=== PATIENT | male | born 1935 | race Native Hawaiian/Other Pacific Islander ===

== ENCOUNTER 2018-03-10 23:58 | Inpatient (IN) | payer OTHER, BC ==
[~2018-03-10] VITALS: Ht 172.7 cm; Wt 85.9 kg
[2018-03-11] VITALS (7 sets, daily range): BP systolic 147–164; BP diastolic 65–79; TEMP 98.1–100; Ht 172.7 cm; Wt 85.9 kg
[2018-03-11 00:50] LABS: PLATELET COUNT 206 K/uL (142-355)
[2018-03-11 00:57] LABS: POTASSIUM 4.4 mmol/L (3.6-5.2)
[2018-03-11 06:10] LABS: PLATELET COUNT 189 K/uL (142-355)
[2018-03-11] MEDS ORDERED: ALLO300T23 PO (11:34)
[2018-03-11] MEDS ORDERED: AMLODIPINE BESYLATE PO (11:35)
[2018-03-12] VITALS: BP 105/84; TEMP 98.5
[2018-03-12 04:13] VITALS: BP 172/92; TEMP 98.5
[2018-03-12 05:50] LABS: PLATELET COUNT 175 K/uL (142-355)
[2018-03-12 06:16] LABS: POTASSIUM 3.7 mmol/L (3.6-5.2)
[2018-03-12 08:03] VITALS: BP 157/94; TEMP 98.9
[2018-03-12 12:03] VITALS: BP 149/74; TEMP 98.2
[2018-03-12 16:30] VITALS: BP 169/88; TEMP 98.6
[2018-03-12 20:09] VITALS: BP 151/58; TEMP 98.5
[2018-03-13] VITALS: BP 136/58; TEMP 98.8
[2018-03-13 04:17] VITALS: BP 170/90; TEMP 98.5
[2018-03-13 05:41] LABS: PLATELET COUNT 164 K/uL (142-355)
[2018-03-13 05:56] LABS: POTASSIUM 3.7 mmol/L (3.6-5.2)
[2018-03-13 08:01] VITALS: BP 144/95; TEMP 98.3
[2018-03-13 12:30] VITALS: BP 159/83; TEMP 98.4
[2018-03-13 16:09] VITALS: BP 160/93; TEMP 98.6
[2018-03-13 20:12] VITALS: BP 167/80; TEMP 98.8
[2018-03-14] VITALS (7 sets, daily range): BP systolic 150–183; BP diastolic 63–91; TEMP 97.6–98.8
[2018-03-14 06:24] LABS: POTASSIUM 3.6 mmol/L (3.6-5.2)
[2018-03-14 06:29] LABS: PLATELET COUNT 184 K/uL (142-355)
[2018-03-15 04:00] VITALS: BP 158/87; TEMP 98.6
[2018-03-15 06:01] LABS: PLATELET COUNT 195 K/uL (142-355)
[2018-03-15 06:13] LABS: POTASSIUM 3.6 mmol/L (3.6-5.2)
[2018-03-15 08:05] VITALS: BP 170/90; TEMP 97.6
[2018-03-15 12:00] VITALS: BP 171/88; TEMP 97.8
[2018-03-15 16:00] VITALS: BP 167/87; TEMP 98
[2018-03-15 20:00] VITALS: BP 147/67; TEMP 98.6
[2018-03-16] VITALS: BP 154/87; TEMP 98.8
[2018-03-16 04:00] VITALS: BP 133/61; TEMP 98.6
[2018-03-16 05:31] LABS: PLATELET COUNT 199 K/uL (142-355)
[2018-03-16 05:49] LABS: POTASSIUM 3.7 mmol/L (3.6-5.2)
[2018-03-16 08:00] VITALS: BP 142/66; TEMP 97.6
[2018-03-16 12:00] VITALS: BP 152/76; TEMP 97.9
[2018-03-16 16:00] VITALS: BP 142/82; TEMP 97.7
== END 2018-03-16 18:39 | DRG 683 ==
LOC: ED 23:58 → MED/SURG 03-11 01:14 → ED 03-11 01:14 → MED/SURG 03-11 01:14
PROVIDERS: Emergency Medicine; ADMIT Internal Medicine
DX: N17.8 Other acute kidney failure (principal); E87.2 Acidosis; E86.0 Dehydration; R53.1 Weakness; H54.3 Unqualified visual loss, both eyes; H91.90 Unspecified hearing loss, unspecified ear; D72.828 Other elevated white blood cell count; R41.82 Altered mental status, unspecified; I10 Essential (primary) hypertension; M10.9 Gout, unspecified; M25.471 Effusion, right ankle; N40.0 Benign prostatic hyperplasia without lower urinary tract symptoms
CPT/HCPCS: 36415; 36600; 80053; 81000; 82550; 82553; 82805; 83605; 83615; 84484; 84550; 85027; 85610; 87040; 96360; 96361; 96375; 99283; J2060; J2543

== ENCOUNTER 2019-04-25 18:15 | Outpatient (CLI) | payer OTHER, BC ==
[~2019-04-25 18:15] MED LIST: ALLO300T23 PO; AMLODIPINE BESYLATE PO
[2019-04-26] MEDS ORDERED: HALO2CON2 PO (09:46)
[2019-04-26] MEDS ORDERED: VALSARTAN40 MG PO (09:47)
[2019-04-26] MEDS ORDERED: MORP20SO3 SL (09:47)
[2019-04-26] MEDS ORDERED: QUET50TA16 PO (09:48)
[2019-04-26] MEDS ORDERED: LORA1TAB17 PO (09:49)
[2019-04-26] MEDS ORDERED: FURO40TA93 PO (09:49)
[2019-04-26] MEDS ORDERED: METO25TA2 PO (09:50)
== END 2019-04-25 18:37 | disposition short-term general hospital (02) ==
LOC: AMB 18:15
DX: S00.81XA Abrasion of other part of head, initial encounter (principal); S60.511A Abrasion of right hand, initial encounter; G30.8 Other Alzheimer's disease; F02.81 Dementia in other diseases classified elsewhere, unspecified severity, with behavioral disturbance; W05.0XXA Fall from non-moving wheelchair, initial encounter; Y92.89 Other specified places as the place of occurrence of the external cause
CPT/HCPCS: A0425; A0429

== ENCOUNTER 2019-04-25 18:39 | Observation (INO) | payer OTHER, BC ==
[~2019-04-25] VITALS: Ht 172.7 cm; Wt 81.4 kg
[2019-04-25 18:39] VITALS: BP 158/70; TEMP 97.5
[2019-04-25 20:59] LABS: PLATELET COUNT 184 K/uL (142-355)
[2019-04-25 21:16] LABS: POTASSIUM 3.9 mmol/L (3.6-5.2); SODIUM 142 mmol/L (136-145)
[2019-04-25 21:23] LABS: PARTIAL THROMBOPLASTIN TIME 25.6 SECONDS (24.5-33.6)
[2019-04-25 22:45] VITALS: BP 158/70; TEMP 98.7; Ht 172.7 cm; Wt 81.4 kg
[2019-04-26] VITALS: BP 158/70; TEMP 98.6
[2019-04-26 04:00] VITALS: BP 145/68; TEMP 98.8
--- NOTE | 2019-04-26 06:42 | NUR ---
ABRASION TO PTS RIGHT HAND COVERED WITH NON STICK TELFA, SECURED WITH CLING.
[2019-04-26 08:00] VITALS: BP 136/75; TEMP 98.7
[2019-04-26] MEDS ORDERED: HALO2CON2 PO (09:46)
[2019-04-26] MEDS ORDERED: MORP20SO3 SL (09:47)
[2019-04-26] MEDS ORDERED: VALSARTAN40 MG PO (09:47)
[2019-04-26] MEDS ORDERED: QUET50TA16 PO (09:48)
[2019-04-26] MEDS ORDERED: LORA1TAB17 PO (09:49)
[2019-04-26] MEDS ORDERED: FURO40TA93 PO (09:49)
[2019-04-26] MEDS ORDERED: METO25TA2 PO (09:50)
[2019-04-26 12:00] VITALS: BP 199/74; TEMP 98.6
--- NOTE | 2019-04-26 14:02 | NUR ---
PT LEFT VIA EMS NEY PRASAD @ 12:45
== END 2019-04-26 12:45 | disposition home health service (06) ==
LOC: ED 18:48 → MED/SURG 21:30
PROVIDERS: Student in an Organized Health Care Education/Training Program; ADMIT Family Medicine
DX: S00.83XA Contusion of other part of head, initial encounter (principal); G30.8 Other Alzheimer's disease; F02.81 Dementia in other diseases classified elsewhere, unspecified severity, with behavioral disturbance; M10.9 Gout, unspecified; S60.221A Contusion of right hand, initial encounter; W18.39XA Other fall on same level, initial encounter; Y92.098 Other place in other non-institutional residence as the place of occurrence of the external cause; S60.511A Abrasion of right hand, initial encounter; E86.0 Dehydration; D72.828 Other elevated white blood cell count; D63.8 Anemia in other chronic diseases classified elsewhere; H54.3 Unqualified visual loss, both eyes; I12.9 Hypertensive chronic kidney disease with stage 1 through stage 4 chronic kidney disease, or unspecified chronic kidney disease; N18.4 Chronic kidney disease, stage 4 (severe); N17.8 Other acute kidney failure
CPT/HCPCS: 80053; 83735; 84443; 84484; 85027; 85610; 85730; 93005; 94760; 96360; 96372; 99220; 99284; G0378; J1200; J1630; J2060